=== PATIENT | male | born 1955 | race American Indian/Alaskan Native ===

== ENCOUNTER 2020-10-02 22:00 | Emergency (ER) | payer OTHER ==
[2020-10-02] MEDS ORDERED: SODIUM CHLORIDE 0.9% 1000 ML 1,000 ML IV ONE (22:18)
--- NOTE | 2020-10-02 22:18 | Emergency Department Report ---
History of Present Illness - General Chief Complaint: Overdose Stated Complaint: POSSIBLE OD Time Seen by Provider: 10/02/20 22:00 Source: patient, EMS Mode of arrival: Ambulatory Limitations: No Limitations - History of Present Illness Initial Comments: Patient is a 64-year-old male that presents emergency room for overdose. Patient brought in by EMS. Patient states that he took 5 Ambien in order to try to go to sleep. Patient states he has been having trouble sleeping for a long time. Patient states he was prescribed 15 tablets of 10 mg of Ambien today. Patient states of 5 and had taken leftover at home. Patient denies suicidal homicidal ideation. Patient states he has a history of depression and PTSD from his service. Patient states he was trying to hurt himself he just want to go to sleep. Patient brought in by EMS. Report received from EMS. EMS states that the patient had 10 pills left over in his bottle of 15. Patient was prescribed 15 tablets of 10 mg Ambien today. Patient has been alert and oriented x4 per EMS.. Patient denies recent travel. Patient denies recent international travel. Patient denies exposure to the novel coronavirus. Patient denies sick contacts. Patient denies fever and chills. Patient denies cough. Patient denies diarrhea. Patient denies coming in contact with anybody with symptoms of the novel coronavirus. Complaint: accidental overdose -: Sudden Intent: want to go to sleep How Overdose Was Discovered: called family/friend Context: Intentional Overdose: started new med recently Treatments Prior to Arrival: none ED Review of Systems ROS: Stated complaint: POSSIBLE OD Other details as noted in HPI Constitutional: malaise. denies: chills, fever Eyes: denies: eye pain, eye discharge, vision change ENT: denies: ear pain, throat pain Respiratory: denies: cough, shortness of breath, wheezing Cardiovascular: denies: chest pain, palpitations Endocrine: no symptoms reported Gastrointestinal: denies: abdominal pain, nausea, diarrhea Genitourinary: denies: urgency, dysuria Musculoskeletal: denies: back pain, joint swelling, arthralgia Skin: denies: rash, lesions Neurological: denies: headache, weakness, paresthesias Psychiatric: denies: anxiety, depression Hematological/Lymphatic: denies: easy bleeding, easy bruising ED Past Medical Hx - Past Medical History Previous Medical History?: Yes Hx Hypertension: Yes Hx Psychiatric Treatment: Yes (PTSD and depression) Additional medical history: Insomnia - Surgical History Past Surgical History?: No - Family History Family history: no significant - Social History Smoking Status: Never Smoker Substance Use Type: None ED Physical Exam - General Limitations: No Limitations General appearance: alert, in no apparent distress - Head Head exam: Present: atraumatic, normocephalic - Eye Eye exam: Present: normal appearance, PERRL Pupils: Present: normal accommodation - ENT ENT exam: Present: mucous membranes moist - Neck Neck exam: Present: normal inspection, full ROM. Absent: tenderness, meningismus - Respiratory Respiratory exam: Present: normal lung sounds bilaterally. Absent: respiratory distress, wheezes, rales - Cardiovascular Cardiovascular Exam: Present: regular rate, normal rhythm. Absent: systolic murmur, diastolic murmur, rubs, gallop - GI/Abdominal GI/Abdominal exam: Present: soft, normal bowel sounds - Rectal Rectal exam: Present: deferred - Extremities Exam Extremities exam: Present: normal inspection - Back Exam Back exam: Present: normal inspection - Neurological Exam Neurological exam: Present: alert, oriented X3, CN II-XII intact, normal gait - Psychiatric Psychiatric exam: Present: normal affect, normal mood - Skin Skin exam: Present: warm, dry, intact, normal color. Absent: rash ED Course Vital Signs 10/02/20 22:37 Temperature 98.0 F Pulse Rate 89 Respiratory 18 Rate Blood Pressure 140/89 [Right] O2 Sat by Pulse 99 Oximetry - Reevaluation(s) Reevaluation #1: The bedside nurse instructed to contact poison control. 10/02/20 22:17 Reevaluation #2: Patient denies suicidal ideation. Patient states he feels fine. Patient states he wants to go. Patient states he does not want any further work-up. Patient refuses labs to be drawn. I discussed the risk with patient. Patient voiced understanding of the risk. Patient is leaving the hospital AGAINST MEDICAL ADVICE. Patient will be given a formal discharge even though he is leaving the hospital AGAINST MEDICAL ADVICE. 10/02/20 22:38 - Consultations Consultation #1: Poison control was contacted and they stated the medication is already been metabolized. Standard labs recommended and no further observation time needed.. 10/02/20 22:17 ED Medical Decision Making - Lab Data Result diagrams: 10/02/20 22:48 10/02/20 22:48 - Medical Decision Making Patient is a 64-year-old male that presents emergency room for accidental overdose. Patient states he was trying to go to sleep. Patient states he just got this medication. Patient states that he was prescribed 15 tablets of 10 mg Ambien and he took 5 of them. Patient states he took them at 3 PM today. Patient denies suicidal and homicidal ideation. Patient states he has a history of depression and PTSD but he was not trying to hurt himself he just wanted to go to sleep. Patient brought in by EMS. Patient was evaluated and enforcement was contacted. Please control recommended observation and standard labs. I discussed with patient the patient states he does not want to be here and he wants to leave. Patient refuses to have further work-up done. I discussed the risk with patient. Patient is of sound mind patient refused care. Patient states he wants to leave. Patient voiced understanding of the risk. Patient signed AMA form. Critical care time documented due to the multiple reassessments, prolonged time at the bedside, interpretation of diagnostics and labs. - Differential Diagnosis Overdose, accidental overdose, Critical Care Time: Yes Critical care time in (mins) excluding proc time.: 35 Critical care attestation.: If time is entered above; I have spent that time in minutes in the direct care of this critically ill patient, excluding procedure time. Critical Care Time: 35 minutes ED Disposition Clinical Impression: Accidental overdose Qualifiers: Encounter type: initial encounter Qualified Code(s): T50.901A - Poisoning by unspecified drugs, medicaments and biological substances, accidental (unintentional), initial encounter Disposition: 07 LEFT AGAINST MEDICAL ADVICE Is pt being admited?: No Does the pt Need Aspirin: No Condition: Critical Additional Instructions: Patient to follow-up with primary care in 2 to 3 days. Patient to rest. Patient to increase water. Patient to avoid Ambien. Patient to return to the ER if condition worsens, changes or new symptoms arise. Referrals: JOSE JUNIOR MD [Primary Care Provider] - 3-5 Days Time of Disposition: 22:43
[2020-10-02 23:04] VITALS: BP 140/89
[2020-10-02 23:41] LABS: Basophils % (Auto) 0.5 % (0.0-1.8); Eosinophils # (Auto) 0.1 K/mm3 (0.0-0.4); Eosinophils % (Auto) 1.4 % (0.0-4.3); Hematocrit 36.5 % (35.5-45.6); Hemoglobin 12.2 gm/dl (11.8-15.2); Lymphocytes # (Auto) 1.5 K/mm3 (1.2-5.4); Mean Corpuscular HGB Conc 34 % (32-34); Mean Corpuscular Volume 88 fl (84-94); Monocytes # (Auto) 0.3 K/mm3 (0.0-0.8); Monocytes % (Auto) 5.9 % (0.0-7.3); Platelet Count 213 K/mm3 (140-440); Red Blood Count 4.16 M/mm3 (3.65-5.03); Red Cell Distribution Width 13.9 % (13.2-15.2)
[2020-10-02 23:46] LABS: Alanine Aminotransferase 12 units/L (7-56); Albumin 4.7 g/dL (3.9-5); BUN/Creatinine Ratio 7; Blood Urea Nitrogen 10 mg/dL (9-20); Calcium 9.2 mg/dL (8.4-10.2); Hemolysis Index 3
== END 2020-10-02 23:30 | disposition left against medical advice (07) ==
LOC: ED 22:00
DX: T50.901A Poisoning by unspecified drugs, medicaments and biological substances, accidental (unintentional), initial encounter (principal); I10 Essential (primary) hypertension; F43.10 Post-traumatic stress disorder, unspecified; F32.9 Major depressive disorder, single episode, unspecified; G47.00 Insomnia, unspecified; Y92.89 Other specified places as the place of occurrence of the external cause
CPT/HCPCS: 36415; 80053; 80320; 85025; 99283; G0480